=== PATIENT | female | born 1945 | race Caucasian/White ===

== ENCOUNTER 2016-09-12 08:14 | Outpatient (CLI) | payer MEDICARE, OTHER ==
[2016-09-12 08:54] LABS: ALT (SGPT) 24 U/L (0-55); AST (SGOT) 20 U/L (5-34); Albumin 4.1 g/dL (3.4-4.8); Alkaline Phosphatase 83 U/L (40-150); Bilirubin, Direct 0.1 mg/dL (0.1-0.3); Bilirubin, Total 0.3 mg/dL (0.2-1.2); Cardiac Risk 3.2 (Less than 4.5); Cholesterol 250 mg/dL (< 200 Desired); HDL Cholesterol 77 mg/dL (>60 Neg Risk); LDL Cholesterol, Calculated 157 mg/dL; Protein, Total 7.2 g/dL (5.8-8.1); Triglycerides 78 mg/dL (Less than 150)
== END 2016-09-12 08:15 | disposition home or self-care (01) ==
LOC: MADLAB 08:14
PROVIDERS: ATTEND Internal Medicine Cardiovascular Disease
DX: E78.2 Mixed hyperlipidemia (principal); I34.0 Nonrheumatic mitral (valve) insufficiency; J44.9 Chronic obstructive pulmonary disease, unspecified
CPT/HCPCS: 36415; 80061; 80076

== ENCOUNTER 2019-07-15 09:53 | Outpatient (CLI) | payer MEDICARE, OTHER ==
--- NOTE | 2019-07-15 11:28 | ULT ---
BILATERAL RENAL ULTRASOUND: Date: 07/15/2019 HISTORY: Hematuria, recurrent UTIs. FINDINGS: Real-time imaging of the right and left kidneys were performed. These show borderline small left kidn ey measuring 8.6 cm. The right kidney measures 7.1 cm. No cyst, mass, or obstruction. The bladder teagan ws a pre-void volume of 292 mL and post-void volume of 78 mL. IMPRESSION: Borderline small kidneys. No obstruction or mass. POS: [id number]
== END 2019-07-15 09:54 | disposition home or self-care (01) ==
LOC: MADULT 09:53
PROVIDERS: ATTEND Nurse Practitioner Family
DX: N39.0 Urinary tract infection, site not specified (principal); R31.9 Hematuria, unspecified
CPT/HCPCS: 76770

== ENCOUNTER 2020-09-06 12:55 | Inpatient (IN) | payer MEDICARE, OTHER ==
[2020-09-06] MEDS ORDERED: Ondansetron ODT 4 MG TAB PO PRN (16:50)
[2020-09-06] MEDS ORDERED: Albuterol 200 PUFF (6.7GM INHALER) INH PRN (16:50)
[2020-09-06] MEDS: Ipratropium Bromide 2.5 ml Neb NEB SCH (18:14)
[2020-09-06] MEDS: rOPINIRole HCl 1 MG TAB PO SCH (21:09)
[2020-09-06] MEDS: Mometasone/Formoterol 60 PUFF AER INH SCH (21:15)
[2020-09-06] MEDS: Acetaminophen 325 MG TAB PO PRN (21:25)
[2020-09-07] MEDS: Ipratropium Bromide 2.5 ml Neb NEB SCH ×5 (05:25→23:44)
[2020-09-07 05:35] LABS: #Basophils 0.1 thou/uL (0.0-0.2); #Eosinphils 0.5 thou/uL (0.0-0.7); #Monocytes 0.5 thou/uL (0.11-0.59); #Neutrophils 6.6 thou/uL (1.40-6.50); %Basophils 0.7 % (0.0-1.0); %Eosinophils 5.1 % (0.0-10.0); %Lymphocytes 27.7 % (21.0-51.0); %Neutrophils 61.5 % (42.0-75.0); Mean Corpuscular HGB CONC 29.7 g/dL (32.0-36.0); Mean Corpuscular Hemoglobin 30.6 pg (27.0-31.0); Platelet Count 337 thou/uL (130-400); RBC Distribution Width 13.9 % (11.5-14.5); Red Blood Cell (RBC) Count 4.58 mill/uL (4.20-5.40); White Blood Cell (WBC) Count 10.7 thou/uL (4.8-10.8)
[2020-09-07 05:50] LABS: ALT (SGPT) Less than 7 U/L (8-55); AST (SGOT) 16 U/L (5-34); Albumin 3.6 g/dL (3.4-4.8); Alkaline Phosphatase 89 U/L (40-110); Anion Gap 14 mmol/L (10-20); BUN (Urea Nitrogen) 11 mg/dL (9.8-20.1); Bilirubin, Total 0.3 mg/dL (0.2-1.2); Calc. Creatinine Clearance 69 mL/min (70-130); Calcium 9.3 mg/dL (7.8-10.44); Carbon Dioxide 30 mmol/L (23-31); Chloride 103 mmol/L (98-107); Globulin 3.4 g/dL (2.4-3.5); Glucose 104 mg/dL (83-110); Potassium 4.5 mmol/L (3.5-5.1); Sodium 142 mmol/L (136-145)
[2020-09-07] MEDS: Acetaminophen 325 MG TAB PO PRN ×3 (06:10→21:13)
[2020-09-07] MEDS: DULoxetine 30 MG CAP PO SCH (08:14)
[2020-09-07] MEDS: Aspirin Chewable 81 MG TAB PO SCH (08:14)
[2020-09-07] MEDS: Mometasone/Formoterol 60 PUFF AER INH SCH ×2 (08:15→21:13)
[2020-09-07] MEDS: Enoxaparin Sodium 40 MG/0.4 ML SYRINGE SC SCH (08:15)
[2020-09-07] MEDS ORDERED: DULOXETINE HCL 60 MG PO SCH (09:00)
[2020-09-07] MEDS: rOPINIRole HCl 1 MG TAB PO SCH (21:15)
[2020-09-08] MEDS ORDERED: Ibuprofen 600 MG TAB PO PRN (00:02)
[2020-09-08] MEDS: Ipratropium Bromide 2.5 ml Neb NEB SCH ×3 (05:21→17:46)
[2020-09-08] MEDS: Mometasone/Formoterol 60 PUFF AER INH SCH ×2 (07:57→21:04)
[2020-09-08] MEDS: Aspirin Chewable 81 MG TAB PO SCH (07:58)
[2020-09-08] MEDS: Enoxaparin Sodium 40 MG/0.4 ML SYRINGE SC SCH (07:58)
[2020-09-08] MEDS: DULoxetine 30 MG CAP PO SCH (07:58)
[2020-09-08] MEDS: Acetaminophen 325 MG TAB PO PRN ×2 (11:32→21:08)
[2020-09-08] MEDS: rOPINIRole HCl 1 MG TAB PO SCH (21:07)
[2020-09-09] MEDS: Ipratropium Bromide 2.5 ml Neb NEB SCH ×5 (00:55→23:29)
[2020-09-09] MEDS: Mometasone/Formoterol 60 PUFF AER INH SCH ×2 (07:29→20:14)
[2020-09-09] MEDS: DULoxetine 30 MG CAP PO SCH (07:30)
[2020-09-09] MEDS: Aspirin Chewable 81 MG TAB PO SCH (07:30)
[2020-09-09] MEDS: Enoxaparin Sodium 40 MG/0.4 ML SYRINGE SC SCH (07:31)
[2020-09-09] MEDS: Acetaminophen 325 MG TAB PO PRN ×2 (07:31→20:04)
[2020-09-09] MEDS: rOPINIRole HCl 1 MG TAB PO SCH (20:14)
[2020-09-09] MEDS: Ibuprofen 200 MG TAB PO PRN (22:08)
[2020-09-10] MEDS: Ipratropium Bromide 2.5 ml Neb NEB SCH ×3 (06:06→18:07)
[2020-09-10] MEDS: Mometasone/Formoterol 60 PUFF AER INH SCH ×2 (10:02→20:29)
[2020-09-10] MEDS: DULoxetine 30 MG CAP PO SCH (10:02)
[2020-09-10] MEDS: Enoxaparin Sodium 40 MG/0.4 ML SYRINGE SC SCH (10:02)
[2020-09-10] MEDS: Aspirin Chewable 81 MG TAB PO SCH (10:03)
[2020-09-10] MEDS: Ibuprofen 200 MG TAB PO PRN (19:42)
[2020-09-10] MEDS: rOPINIRole HCl 1 MG TAB PO SCH (20:29)
[2020-09-11] MEDS: Ipratropium Bromide 2.5 ml Neb NEB SCH ×5 (04:28→23:23)
[2020-09-11] MEDS: Enoxaparin Sodium 40 MG/0.4 ML SYRINGE SC SCH (08:33)
[2020-09-11] MEDS: Acetaminophen 325 MG TAB PO PRN (08:33)
[2020-09-11] MEDS: Aspirin Chewable 81 MG TAB PO SCH (08:33)
[2020-09-11] MEDS: DULoxetine 30 MG CAP PO SCH (08:33)
[2020-09-11] MEDS: Mometasone/Formoterol 60 PUFF AER INH SCH ×2 (08:34→19:59)
[2020-09-11] MEDS: Ibuprofen 200 MG TAB PO PRN (18:27)
[2020-09-11] MEDS: rOPINIRole HCl 1 MG TAB PO SCH (19:59)
[2020-09-12] MEDS: Ipratropium Bromide 2.5 ml Neb NEB SCH ×4 (05:46→23:00)
[2020-09-12] MEDS: Aspirin Chewable 81 MG TAB PO SCH (09:16)
[2020-09-12] MEDS: DULoxetine 30 MG CAP PO SCH (09:16)
[2020-09-12] MEDS: Mometasone/Formoterol 60 PUFF AER INH SCH ×2 (09:17→20:34)
[2020-09-12] MEDS: Enoxaparin Sodium 40 MG/0.4 ML SYRINGE SC SCH (09:17)
[2020-09-12] MEDS: rOPINIRole HCl 1 MG TAB PO SCH (20:35)
[2020-09-12] MEDS: Ibuprofen 200 MG TAB PO PRN (21:39)
[2020-09-13] MEDS: Ipratropium Bromide 2.5 ml Neb NEB SCH ×4 (05:05→23:25)
[2020-09-13] MEDS: DULoxetine 30 MG CAP PO SCH (09:19)
[2020-09-13] MEDS: Enoxaparin Sodium 40 MG/0.4 ML SYRINGE SC SCH (09:19)
[2020-09-13] MEDS: Aspirin Chewable 81 MG TAB PO SCH (09:19)
[2020-09-13] MEDS: Mometasone/Formoterol 60 PUFF AER INH SCH ×2 (09:19→20:24)
[2020-09-13] MEDS: rOPINIRole HCl 1 MG TAB PO SCH (20:24)
[2020-09-14] MEDS: Ipratropium Bromide 2.5 ml Neb NEB SCH ×2 (05:15→12:00)
[2020-09-14] MEDS: Ibuprofen 200 MG TAB PO PRN (05:43)
[2020-09-14] MEDS: Mometasone/Formoterol 60 PUFF AER INH SCH (09:29)
[2020-09-14] MEDS: Acetaminophen 325 MG TAB PO PRN (09:30)
[2020-09-14] MEDS: Aspirin Chewable 81 MG TAB PO SCH (09:30)
[2020-09-14] MEDS: Enoxaparin Sodium 40 MG/0.4 ML SYRINGE SC SCH (09:30)
[2020-09-14 09:41] VITALS: TEMP 96.3
[2020-09-14] MEDS: DULoxetine 30 MG CAP PO SCH (09:58)
[2020-09-14 10:01] VITALS: BP 96/63
[2020-09-14 14:13] VITALS: BMI 27.9
== END 2020-09-14 15:40 | disposition home or self-care (01) | DRG 561 ==
LOC: UNDOADMIN 12:55 → MADMS 12:55 → UNDOADMIN 09-11 08:30 → MADMS 09-11 08:30
PROVIDERS: ADMIT Family Medicine; ATTEND Family Medicine
DX: S82.851D Displaced trimalleolar fracture of right lower leg, subsequent encounter for closed fracture with routine healing (principal); R53.1 Weakness; R26.9 Unspecified abnormalities of gait and mobility; I10 Essential (primary) hypertension; J44.9 Chronic obstructive pulmonary disease, unspecified; E78.5 Hyperlipidemia, unspecified; F32.9 Major depressive disorder, single episode, unspecified; G25.81 Restless legs syndrome; Z96.653 Presence of artificial knee joint, bilateral; W18.30XD Fall on same level, unspecified, subsequent encounter; Z95.2 Presence of prosthetic heart valve; Z79.82 Long term (current) use of aspirin; Z88.5 Allergy status to narcotic agent; Z88.1 Allergy status to other antibiotic agents; Z88.8 Allergy status to other drugs, medicaments and biological substances; Z90.49 Acquired absence of other specified parts of digestive tract; Z90.89 Acquired absence of other organs
CPT/HCPCS: 36415; 80053; 85025; J1650

== ENCOUNTER 2023-06-24 00:52 | Emergency (ER) | payer MEDICARE, OTHER ==
[2023-06-24 01:35] LABS: #Basophils 0.1 thou/uL (0.0-0.2); #Eosinphils 0.5 thou/uL (0.0-0.7); #Lymphocytes 4.1 thou/uL (1.20-3.40); #Monocytes 0.5 thou/uL (0.11-0.59); #Neutrophils 6.4 thou/uL (1.40-6.50); %Basophils 1.1 % (0.0-1.0); %Eosinophils 4.3 % (0.0-10.0); %Lymphocytes 35.4 % (21.0-51.0); %Monocytes 4.3 % (0.0-10.0); %Neutrophils 54.9 % (42.0-75.0); Hematocrit 43.9 % (36.0-47.0); Mean Corpuscular HGB CONC 31.9 g/dL (32.0-36.0); Mean Corpuscular Hemoglobin 29.8 pg (27.0-31.0); Mean Corpuscular Volume 93.3 fl (78.0-98.0); Mean Platelet Volume 7.2 fL (7.4-10.4); Platelet Count 428 10x3/uL (130-400); RBC Distribution Width 15.6 % (11.5-14.5); White Blood Cell (WBC) Count 11.6 10x3/uL (4.8-10.8)
[2023-06-24 01:45] LABS: ALT (SGPT) 8 U/L (8-55); AST (SGOT) 21 U/L (5-34); Albumin 3.7 g/dL (3.4-4.8); Alkaline Phosphatase 88 U/L (40-110); Anion Gap 16 mmol/L (10-20); BUN (Urea Nitrogen) 17 mg/dL (9.8-20.1); Bilirubin, Total 0.2 mg/dL (0.2-1.2); Calc. Creatinine Clearance 0 mL/min (70-130); Calcium 8.7 mg/dL (7.8-10.44); Carbon Dioxide 17 mmol/L (23-31); Chloride 110 mmol/L (98-107); Estimated GFR 70; Globulin 4.2 g/dL (2.4-3.5); Glucose 147 mg/dL (83-110); Potassium 4.2 mmol/L (3.5-5.1); Protein, Total 7.9 g/dL (5.8-8.1); Sodium 139 mmol/L (136-145)
[2023-06-24 01:50] LABS: Troponin I Less than 0.010 ng/mL (< 0.028)
[2023-06-24 02:35] LABS: Magnesium 1.9 mg/dL (1.6-2.6)
[2023-06-24] MEDS ORDERED: Sodium Chloride 0.9% 500 ML ONE (03:17)
[2023-06-24 03:20] LABS: Bilirubin Negative (Negative); Blood, Urine Negative (Negative); Clarity Clear (Clear); Glucose, Urine (Dipstick) Negative (Negative); Ketone, Urine Negative (Negative); Leukocyte Negative (Negative); Nitrite Negative (Negative); Protein, Urine (Dipstick) 30 mg/dL (Neg-Trace); Urobilinogen 0.2 mg/dL (Less than 2); pH, Urine 5.5 (5.0-9.0)
[2023-06-24 03:25] LABS: CAUTI Indications for Culture Pelvic or flank pain; RBC/HPF None Seen HPF (0-3); Specific Gravity, Urine 1.025 (1.005-1.030); Squamous Epithelial 0-3 HPF (0-3); WBC/HPF 0-3 HPF (0-3)
[2023-06-24 03:26] LABS: Urine Culture Reflex No No
[2023-06-24] MEDS ORDERED: dilTIAZem CD 180 MG CAP PO SCH (03:30)
== END 2023-06-24 05:14 | disposition home or self-care (01) ==
LOC: MADERS 00:52
DX: R00.0 Tachycardia, unspecified (principal); J96.10 Chronic respiratory failure, unspecified whether with hypoxia or hypercapnia; J44.9 Chronic obstructive pulmonary disease, unspecified; Z87.891 Personal history of nicotine dependence
CPT/HCPCS: 71045; 80053; 81001; 83735; 83880; 84443; 84484; 85025; J7030